=== PATIENT | male | born 1965 | race American Indian/Alaskan Native ===

== ENCOUNTER 2016-10-04 09:51 | Emergency (ER) | payer MEDICARE, MEDICAID ==
[2016-10-04 10:06] VITALS: BMI 21.7
[2016-10-04 10:11] VITALS: BP 104/63; PULSE 59; RESP 16; TEMP 98; O2SAT 99
--- NOTE | 2016-10-04 10:39 | C.PDOC ---
History Of Present Illness Patient presents to ED c/o body aches, generalized weakness, increased gas/ fullness for three months. Patient had blood work done by PMD 1 month ago that was "normal", and was also seem at [facility] last week and blood work and urine were also "normal". He denies chest pain, SOB, fever, N/V/D. Time Seen by Provider: 10/04/16 10:14 Chief Complaint (Nursing): Abdominal Pain History Per: Patient History/Exam Limitations: no limitations Onset/Duration Of Symptoms: Persistent (3 months) Current Symptoms Are (Timing): Still Present Severity: Mild Quality Of Discomfort: "Pain" Past Medical History Reviewed: Historical Data, Nursing Documentation, Vital Signs Vital Signs: Last Vital Signs Temp 98 F 10/04/16 10:11 Pulse 59 L 10/04/16 10:11 Resp 16 10/04/16 10:11 BP 104/63 10/04/16 10:11 Pulse Ox 99 10/04/16 10:39 - Medical History PMH: No Chronic Diseases Surgical History: No Surg Hx Family History: States: No Known Family Hx - Social History Hx Alcohol Use: Yes Hx Substance Use: Yes (SMOKE MARIJUANNA LAST SMOKED 3 WEEKS AGO) Review Of Systems Except As Marked, All Systems Reviewed And Found Negative. Constitutional: Positive for: Weakness, Malaise. Negative for: Fever, Chills Cardiovascular: Negative for: Chest Pain, Palpitations Respiratory: Negative for: Cough, Shortness of Breath Gastrointestinal: Positive for: Other (gas). Negative for: Nausea, Vomiting, Abdominal Pain, Diarrhea Physical Exam - Physical Exam Appears: Well, Non-toxic, No Acute Distress Skin: Normal Color, Warm, Dry Head: Normacephalic Eye(s): bilateral: Normal Inspection Oral Mucosa: Moist Cardiovascular: Rhythm Regular Respiratory: Normal Breath Sounds, No Rales, No Rhonchi, No Wheezing Gastrointestinal/Abdominal: Normal Exam, Bowel Sounds, Soft, No Tenderness Extremity: Other (RUE contracted) Extremity: Bilateral: Atraumatic Neurological/Psych: Oriented x3 Gait: Steady ED Course And Treatment O2 Sat by Pulse Oximetry: 99 (RA) Pulse Ox Interpretation: Normal Progress Note: After examination, patient offered blood work, UA, etc - states he would rather follow up with PMD Dr. Doherty. He was instructed to follow up in 1-2 days, and understands he should return to ED if symptoms worsen. Disposition Counseled Patient/Family Regarding: Diagnosis, Need For Followup - Disposition Referrals: Fran Doherty MD [Staff Provider] - Disposition: HOME/ ROUTINE Disposition Time: 10:40 Condition: STABLE Additional Instructions: FOLLOW UP WITH DR DOHERTY IN 1-2 DAYS RETURN TO ER IF YOU HAVE ANY CONCERNING SYMPTOMS Forms: General Discharge Instructions Print Language: IRISH - POA Present On Arrival: None - Clinical Impression Clinical Impression: General medical exam
== END 2016-10-04 10:40 | disposition home or self-care (01) ==
LOC: C.ER 09:51
DX: Z00.00 Encounter for general adult medical examination without abnormal findings (principal)